=== PATIENT | male | born 1965 | race Caucasian/White ===

== ENCOUNTER 2020-09-27 08:33 | Day surgery (SDC) | payer OTHER ==
[~2020-09-27] VITALS: Ht 172.7 cm; Wt 101.0 kg
[~2020-09-27 08:33] MED LIST: VITAMIN D; Vitamin B Comple1 EA PO; ZOLOFT50 MG PO
--- NOTE | 2020-09-27 09:03 | NUR ---
Ambulatory in Day Surgery Patient confirms NPO status and agrees with scheduled surgery. Patient States Post-Procedure ride home has been arranged. PROVIDED EMOTIONAL SUPPORT FRO PATIENT ANXIETY.
--- NOTE | 2020-09-27 09:38 | NUR ---
09/27/20 0938 Emili Kaplan History, Chart, Medications and Allergies reviewed before start of procedure.Patient confirms NPO status and agrees with scheduled surgery.PATIENT DETERMINED TO BE ASA APPROPRIATE FOR MODERATE SEDATION PRIOR TO START OF PROCEDURE BY .3-LEAD EKG REVIEWED WITH PHYSICIAN PRIOR TO START OF PROCEDURE.MONITOR INTACT WITH CONTINUOUS PULSE OXIMETRY AND INTERMITTENT BP.
--- NOTE | 2020-09-27 10:28 | NUR ---
Patient up to Ambulate independently. Gait steady. Discharge instructions reviewed with patient. Patient verbalizes understanding. Copy given to patient to take home. Discharged via wheelchair to private car for ride home.
== END 2020-09-27 22:47 | disposition home or self-care (01) ==
LOC: ORSCMMR 08:33
PROVIDERS: Internal Medicine Gastroenterology
PROC: 0D758ZZ Dilation of Esophagus, Via Natural or Artificial Opening Endoscopic (ICD-10-PCS; principal; 2020-09-27 09:30)
PROC: 0DB68ZX Excision of Stomach, Via Natural or Artificial Opening Endoscopic, Diagnostic (ICD-10-PCS; principal; 2020-09-27 09:30)
PROC: 0DB58ZX Excision of Esophagus, Via Natural or Artificial Opening Endoscopic, Diagnostic (ICD-10-PCS; principal; 2020-09-27 09:30)
PROC: 0DB48ZX Excision of Esophagogastric Junction, Via Natural or Artificial Opening Endoscopic, Diagnostic (ICD-10-PCS; principal; 2020-09-27 09:30)
PROC: 0DB98ZX Excision of Duodenum, Via Natural or Artificial Opening Endoscopic, Diagnostic (ICD-10-PCS; principal; 2020-09-27 09:30)
DX: R13.14 Dysphagia, pharyngoesophageal phase (principal); K20.90 Esophagitis, unspecified without bleeding; K29.70 Gastritis, unspecified, without bleeding; F32.9 Major depressive disorder, single episode, unspecified; K21.9 Gastro-esophageal reflux disease without esophagitis; K29.80 Duodenitis without bleeding; G47.30 Sleep apnea, unspecified; Z79.899 Other long term (current) drug therapy
CPT/HCPCS: 88305; 88342; A9270; C1726; J2250; J3010; J7120